=== PATIENT | male | born 1955 | race Caucasian/White ===

== ENCOUNTER 2017-03-11 21:16 | Inpatient (IN) | payer OTHER, MEDICAID ==
[2017-03-11] MEDS: ASPIRIN 81 MG TAB PO (21:49)
[2017-03-11] MEDS: METOPROLOL 5 MG INJ IV ×2 (21:49→22:36)
[2017-03-11] MEDS: NITROGLYCERIN 2% 1 GM OINT PKT TD (21:50)
[2017-03-11] MEDS: NITROGLYCERIN (SL) 0.4 MG TAB SL (21:57)
[2017-03-11 22:01] LABS: ADD MAN DIFF? NO
[2017-03-11 22:04] LABS: WHITE BLOOD COUNT 15.1 10^3/ul (4.8-10.8)
[2017-03-11 22:04] LABS: BASOPHIL # 0.1 10^3/ul (0.0-0.1); BASOPHILS % 0.5 % (0.0-2.0); EOSINOPHILS # 0.1 10^3/ul (0.0-0.5); EOSINOPHILS % 0.5 % (0.0-7.0); HEMATOCRIT 52.3 % (42.0-52.0); HEMOGLOBIN 17.6 g/dl (14.0-18.0); LYMPHOCYTES # 2.7 10^3/ul (0.8-2.9); LYMPHOCYTES % 18.1 % (15.0-51.0); MEAN CORPUSCULAR HEMOGLOBIN 28.1 pg (29.0-33.0); MEAN CORPUSCULAR HGB CONC 33.7 g/dl (32.0-37.0); MEAN CORPUSCULAR VOLUME 83.5 fl (82.0-101.0); MEAN PLATELET VOLUME 10.8 fl (7.4-10.4); MONOCYTE # 1.1 10^3/ul (0.3-0.9); MONOCYTES % 7.1 % (0.0-11.0); NEUTROPHIL # 10.9 10^3/ul (1.6-7.5); NEUTROPHILS % 72.4 % (39.0-77.0); PLATELET COUNT 258 10^3/UL (140-415); RED BLOOD COUNT 6.26 10^6/ul (4.70-6.10); RED CELL DISTRIBUTION WIDTH 13.4 % (11.5-14.5)
[2017-03-11 22:20] LABS: ANION GAP 27 (8-16); BLOOD UREA NITROGEN 26 mg/dl (7-20); CALCIUM 10.5 mg/dl (8.4-10.2); CARBON DIOXIDE 19 mmol/L (21-31); CHLORIDE 106 mmol/L (97-110); CREATININE 1.84 mg/dl (0.61-1.24); GLUCOSE 310 mg/dl (70-220); POTASSIUM 5.1 mmol/L (3.5-5.1); SODIUM 147 mmol/L (135-144)
[2017-03-11] MEDS ORDERED: ACETAMINOPHEN 325 MG TAB PO (22:30)
[2017-03-11] MEDS ORDERED: ONDANSETRON 4 MG INJ IV (22:30)
[2017-03-11 22:33] LABS: TROPONIN-I < 0.012 ng/ml (0.00-0.12)
[2017-03-11] MEDS: SOD CHLORIDE 0.9% 1,000 ML IV ×2 (22:36→22:38)
[2017-03-11] MEDS ORDERED: DILTIAZEM-D5W 125MG/125ML DRIP 125 ML IV ×2 (23:29→23:45)
[2017-03-11] MEDS: ONDANSETRON 4 MG INJ IV (23:38)
[2017-03-12] MEDS ORDERED: NACL 0.9% 3 ML SYG IV
[2017-03-12] MEDS ORDERED: morphine 2 MG INJ IV
[2017-03-12] MEDS ORDERED: MAGNESIUM HYDROXIDE 30ML CUP PO
[2017-03-12] MEDS ORDERED: DOCUSATE SODIUM 100 MG CAP PO
[2017-03-12] MEDS ORDERED: ACETAMINOPHEN 325 MG TAB PO
[2017-03-12] MEDS ORDERED: ALBUTEROL/IPRATROPIUM (NEB) 3 ML AMP HHN
[2017-03-12] MEDS ORDERED: NITROGLYCERIN (SL) 0.4 MG TAB SL
[2017-03-12] MEDS ORDERED: NA PHOSPHATE/BIPHOS 133 ML ENEMA PR
[2017-03-12] MEDS ORDERED: DILTIAZEM-D5W 125MG/125ML DRIP 125 ML IV
[2017-03-12] MEDS ORDERED: hydrALAzine 20 MG INJ IV
[2017-03-12] MEDS ORDERED: LORAZEPAM 2 MG INJ IV
[2017-03-12] MEDS ORDERED: ONDANSETRON 4 MG INJ IV
[2017-03-12] MEDS ORDERED: HYDROCODONE/APAP (5/325) TAB PO
[2017-03-12] MEDS: DILTIAZEM 125 MG in DEXTROSE 5% 100 ML IV (00:03)
[2017-03-12] MEDS: INSULIN LISPRO 100 UNIT/ML VIAL SC (00:06)
[2017-03-12] MEDS: METOPROLOL 25 MG TAB PO (00:19)
[2017-03-12 03:06] LABS: CREATINE KINASE 68 IU/L (23-200)
[2017-03-12 03:07] LABS: ALANINE AMINOTRANSFERASE 49 IU/L (13-69); ALBUMIN 3.6 g/dl (3.3-4.9); ALKALINE PHOSPHATASE 59 IU/L (42-121); ASPARTATE AMINO TRANSFERASE 40 IU/L (15-46); BILIRUBIN,INDIRECT 0.6 mg/dl (0-1.1); BILIRUBIN,TOTAL 0.6 mg/dl (0.2-1.3); LIPASE 53 U/L (23-300); TOTAL PROTEIN 7.4 g/dl (6.1-8.1)
[2017-03-12 03:18] LABS: CK INDEX 11.3
[2017-03-12 03:24] LABS: CK-MB 7.71 ng/ml (0.0-2.4); TROPONIN-I < 0.012 ng/ml (0.00-0.12)
[2017-03-12 03:25] LABS: FREE T4 (FREE THYROXINE) 1.64 ng/dl (0.64-1.79)
[2017-03-12 05:57] LABS: ADD MAN DIFF? NO
[2017-03-12] MEDS ORDERED: GLUCOSE GEL 15 GRAM TUBE BUCCAL (06:00)
[2017-03-12] MEDS ORDERED: GLUCOSE GEL 15 GRAM TUBE PO ×2 (06:00)
[2017-03-12] MEDS ORDERED: GLUCAGON 1 MG INJ IM (06:00)
[2017-03-12] MEDS ORDERED: DEXTROSE 50% 50 ML SYRINGE IV ×2 (06:00)
[2017-03-12 06:13] LABS: BASOPHILS % 0.3 % (0.0-2.0); EOSINOPHILS % 0.1 % (0.0-7.0); HEMATOCRIT 47.5 % (42.0-52.0); HEMOGLOBIN 16.1 g/dl (14.0-18.0); LYMPHOCYTES # 1.3 10^3/ul (0.8-2.9); MEAN CORPUSCULAR HEMOGLOBIN 28.6 pg (29.0-33.0); MEAN CORPUSCULAR HGB CONC 33.9 g/dl (32.0-37.0); MEAN CORPUSCULAR VOLUME 84.4 fl (82.0-101.0); MEAN PLATELET VOLUME 10.9 fl (7.4-10.4); MONOCYTE # 1.3 10^3/ul (0.3-0.9); MONOCYTES % 9.4 % (0.0-11.0); NEUTROPHIL # 10.6 10^3/ul (1.6-7.5); NEUTROPHILS % 79.2 % (39.0-77.0); PLATELET COUNT 191 10^3/UL (140-415); RED BLOOD COUNT 5.63 10^6/ul (4.70-6.10); RED CELL DISTRIBUTION WIDTH 14.1 % (11.5-14.5)
[2017-03-12 06:13] LABS: WHITE BLOOD COUNT 13.4 10^3/ul (4.8-10.8)
[2017-03-12 06:18] LABS: CHOLESTEROL 144 mg/dl (100-200)
[2017-03-12 06:18] LABS: CHOL/HDL RATIO 5.1 RATIO; CREATINE KINASE 51 IU/L (23-200); HDL CHOLESTEROL 28 mg/dl (30-78); LDL CHOLESTEROL,CALCULATED 53 mg/dl; TRIGLYCERIDES 317 mg/dl (0-149)
[2017-03-12 06:20] LABS: ANION GAP 16 (8-16); BLOOD UREA NITROGEN 34 mg/dl (7-20); CALCIUM 9.3 mg/dl (8.4-10.2); CARBON DIOXIDE 24 mmol/L (21-31); CHLORIDE 111 mmol/L (97-110); CREATININE 1.87 mg/dl (0.61-1.24); GLUCOSE 223 mg/dl (70-220); MAGNESIUM 2.1 mg/dl (1.7-2.5); PHOSPHORUS 5.1 mg/dl (2.5-4.9); POTASSIUM 5.2 mmol/L (3.5-5.1); SODIUM 146 mmol/L (135-144)
[2017-03-12 06:30] LABS: CK INDEX 17.6
[2017-03-12 06:31] LABS: CK-MB 8.96 ng/ml (0.0-2.4); TROPONIN-I < 0.012 ng/ml (0.00-0.12)
[2017-03-12 07:50] LABS: HEMOGLOBIN A1C 8.5 % (0-5.9)
[2017-03-12] MEDS: ASPIRIN (EC) 325 MG TAB PO ×2 (08:41→19:56)
[2017-03-12] MEDS: AMLODIPINE 5 MG TAB PO (08:42)
[2017-03-12] MEDS: FENOFIBRATE 145 MG TAB PO (08:42)
[2017-03-12] MEDS: FAMOTIDINE 20 MG INJ IV ×2 (08:42→21:07)
[2017-03-12] MEDS: LORATADINE 10 MG TAB PO (08:42)
[2017-03-12] MEDS ORDERED: NON-FORMULARY/PATIENT OWN MED (Canagliflozin (Invokana) 300 MG) PO (09:00)
[2017-03-12] MEDS ORDERED: FAMOTIDINE 20 MG TAB PO (09:00)
[2017-03-12 09:06] LABS: CREATINE KINASE 58 IU/L (23-200)
[2017-03-12 09:17] LABS: CK INDEX 14.6
[2017-03-12] MEDS: INSULIN ASPART [NOVOLOG] 3 ML PEN SC ×4 (09:21→22:59)
[2017-03-12 09:44] LABS: CK-MB 8.46 ng/ml (0.0-2.4); TROPONIN-I < 0.012 ng/ml (0.00-0.12)
[2017-03-12 09:47] LABS: ADD UMIC NO; UR ASCORBIC ACID NEGATIVE (NEGATIVE); UR BILIRUBIN (Dip) NEGATIVE (NEGATIVE); UR BLOOD (Dip) NEGATIVE (NEGATIVE); UR CLARITY CLEAR (CLEAR); UR COLOR YELLOW (YELLOW); UR GLUCOSE (Dip) 3+ mg/dL (NEGATIVE); UR KETONES (Dip) TRACE mg/dL (NEGATIVE); UR LEUKOCYTE ESTERASE (Dip) NEGATIVE Leu/ul (NEGATIVE); UR NITRITE (Dip) NEGATIVE (NEGATIVE); UR SPECIFIC GRAVITY (Dip) 1.016 (1.003-1.030); UR TOTAL PROTEIN (Dip) NEGATIVE (NEGATIVE); UR UROBILINOGEN (Dip) NEGATIVE (NEGATIVE)
[2017-03-12 10:10] LABS: CREATININE,URINE RANDOM 72.24 mg/dl (20-370)
[2017-03-12 10:19] LABS: SODIUM,URINE RANDOM < 13 mmol/L (30-90)
[2017-03-12] MEDS ORDERED: LABETALOL HCL 20MG INJ IV (12:00)
[2017-03-12 14:42] LABS: CREATINE KINASE 47 IU/L (23-200)
[2017-03-12 14:53] LABS: CK INDEX 16.4
[2017-03-12 14:56] LABS: TROPONIN-I < 0.012 ng/ml (0.00-0.12)
[2017-03-12 14:57] LABS: CK-MB 7.71 ng/ml (0.0-2.4)
[2017-03-12 15:00] LABS: ANION GAP 18 (8-16); BLOOD UREA NITROGEN 34 mg/dl (7-20); CARBON DIOXIDE 23 mmol/L (21-31); CHLORIDE 110 mmol/L (97-110); CREATININE 1.83 mg/dl (0.61-1.24); GLUCOSE 218 mg/dl (70-220); POTASSIUM 5.2 mmol/L (3.5-5.1); SODIUM 146 mmol/L (135-144)
[2017-03-12] MEDS: [UNRECOGNIZED DRUG - OTHER] XX (19:30)
[2017-03-12] MEDS: HEPARIN 5,000 UNIT/0.5 ML VIAL SC ×2 (19:56→21:24)
[2017-03-12] MEDS: SOD CHLORIDE 0.45% 1,000 ML IV ×2 (19:56→23:30)
[2017-03-12] MEDS: ATORVASTATIN 40 MG TAB PO (21:07)
[2017-03-13] MEDS: INSULIN ASPART [NOVOLOG] 3 ML PEN SC ×6 (00:03→21:00)
[2017-03-13] MEDS ORDERED: ACCU-CHEK XX (02:00)
[2017-03-13] MEDS: [UNRECOGNIZED DRUG - OTHER] XX ×2 (03:05→19:30)
[2017-03-13 06:11] LABS: ADD MAN DIFF? NO
[2017-03-13 06:25] LABS: WHITE BLOOD COUNT 6.3 10^3/ul (4.8-10.8)
[2017-03-13 06:25] LABS: BASOPHILS % 0.5 % (0.0-2.0); EOSINOPHILS # 0.3 10^3/ul (0.0-0.5); EOSINOPHILS % 4.2 % (0.0-7.0); HEMATOCRIT 40.8 % (42.0-52.0); HEMOGLOBIN 13.9 g/dl (14.0-18.0); LYMPHOCYTES # 1.5 10^3/ul (0.8-2.9); LYMPHOCYTES % 23.5 % (15.0-51.0); MEAN CORPUSCULAR HEMOGLOBIN 28.8 pg (29.0-33.0); MEAN CORPUSCULAR HGB CONC 34.1 g/dl (32.0-37.0); MEAN CORPUSCULAR VOLUME 84.6 fl (82.0-101.0); MONOCYTE # 0.7 10^3/ul (0.3-0.9); MONOCYTES % 10.7 % (0.0-11.0); NEUTROPHIL # 3.8 10^3/ul (1.6-7.5); NEUTROPHILS % 60.6 % (39.0-77.0); PLATELET COUNT 150 10^3/UL (140-415); RED BLOOD COUNT 4.82 10^6/ul (4.70-6.10)
[2017-03-13 06:39] LABS: PHOSPHORUS 3.1 mg/dl (2.5-4.9)
[2017-03-13] MEDS: DILTIAZEM-D5W 125MG/125ML DRIP 125 ML IV (06:45)
[2017-03-13 06:57] LABS: ANION GAP 14 (8-16); BLOOD UREA NITROGEN 31 mg/dl (7-20); CARBON DIOXIDE 23 mmol/L (21-31); CHLORIDE 107 mmol/L (97-110); CREATININE 1.48 mg/dl (0.61-1.24); GLUCOSE 179 mg/dl (70-220); POTASSIUM 3.8 mmol/L (3.5-5.1); SODIUM 140 mmol/L (135-144)
[2017-03-13] MEDS: LORATADINE 10 MG TAB PO (09:35)
[2017-03-13] MEDS: FAMOTIDINE 20 MG INJ IV ×2 (09:35→21:12)
[2017-03-13] MEDS: AMLODIPINE 5 MG TAB PO (09:37)
[2017-03-13] MEDS: FENOFIBRATE 145 MG TAB PO (09:38)
[2017-03-13] MEDS: ASPIRIN (EC) 325 MG TAB PO (09:38)
[2017-03-13] MEDS: HEPARIN 5,000 UNIT/0.5 ML VIAL SC ×2 (09:41→21:20)
[2017-03-13] MEDS: SOD CHLORIDE 0.45% 1,000 ML IV (13:54)
[2017-03-13] MEDS: ATORVASTATIN 40 MG TAB PO (21:13)
[2017-03-14] MEDS: SOD CHLORIDE 0.45% 1,000 ML IV (02:40)
[2017-03-14] MEDS: [UNRECOGNIZED DRUG - OTHER] XX ×2 (03:30→11:30)
[2017-03-14 07:30] LABS: ADD MAN DIFF? NO
[2017-03-14 07:34] LABS: BASOPHILS % 0.2 % (0.0-2.0); EOSINOPHILS # 0.2 10^3/ul (0.0-0.5); EOSINOPHILS % 4.6 % (0.0-7.0); HEMATOCRIT 36.4 % (42.0-52.0); HEMOGLOBIN 12.6 g/dl (14.0-18.0); LYMPHOCYTES # 1.2 10^3/ul (0.8-2.9); LYMPHOCYTES % 29.2 % (15.0-51.0); MEAN CORPUSCULAR HEMOGLOBIN 28.6 pg (29.0-33.0); MEAN CORPUSCULAR HGB CONC 34.6 g/dl (32.0-37.0); MEAN CORPUSCULAR VOLUME 82.7 fl (82.0-101.0); MEAN PLATELET VOLUME 10.9 fl (7.4-10.4); MONOCYTE # 0.4 10^3/ul (0.3-0.9); MONOCYTES % 10.2 % (0.0-11.0); NEUTROPHIL # 2.3 10^3/ul (1.6-7.5); NEUTROPHILS % 55.3 % (39.0-77.0); PLATELET COUNT 122 10^3/UL (140-415); RED CELL DISTRIBUTION WIDTH 13.4 % (11.5-14.5)
[2017-03-14 07:34] LABS: WHITE BLOOD COUNT 4.1 10^3/ul (4.8-10.8)
[2017-03-14 07:59] LABS: ANION GAP 12 (8-16); BLOOD UREA NITROGEN 21 mg/dl (7-20); CALCIUM 8.1 mg/dl (8.4-10.2); CARBON DIOXIDE 24 mmol/L (21-31); CHLORIDE 108 mmol/L (97-110); CREATININE 1.13 mg/dl (0.61-1.24); GLUCOSE 159 mg/dl (70-220); POTASSIUM 4.3 mmol/L (3.5-5.1); SODIUM 140 mmol/L (135-144)
[2017-03-14] MEDS: INSULIN ASPART [NOVOLOG] 3 ML PEN SC ×2 (09:05→12:46)
[2017-03-14] MEDS: HEPARIN 5,000 UNIT/0.5 ML VIAL SC (09:05)
[2017-03-14] MEDS: CANAGLIFLOZIN 300 MG PO (09:07)
[2017-03-14] MEDS: AMLODIPINE 5 MG TAB PO (09:12)
[2017-03-14] MEDS: LORATADINE 10 MG TAB PO (09:12)
[2017-03-14] MEDS: FENOFIBRATE 145 MG TAB PO (09:13)
[2017-03-14] MEDS: FAMOTIDINE 20 MG INJ IV (09:14)
[2017-03-14] MEDS: ASPIRIN (EC) 325 MG TAB PO (09:19)
[2017-03-14] MEDS: APIXABAN 5 MG TABLET PO (12:48)
[2017-03-14 14:52] LABS: CREATININE, RANDOM URINE 81 mg/dL (20-370); MICROALBUMIN 2.9 mg/dL; MICROALBUMIN/CREATININE RATIO 36 (<30)
[2017-03-15] MEDS ORDERED: INFLUENZA VIRUS VACCINE 0.5 ML (DISPENSING) IM* (09:00)
== END 2017-03-14 16:31 | disposition home or self-care (01) | DRG 309 ==
LOC: TEL 22:26 → E/R 21:16
DX: I48.91 Unspecified atrial fibrillation (principal); N17.9 Acute kidney failure, unspecified; K56.609 Unspecified intestinal obstruction, unspecified as to partial versus complete obstruction; E87.0 Hyperosmolality and hypernatremia; E87.2 Acidosis; E11.22 Type 2 diabetes mellitus with diabetic chronic kidney disease; I12.9 Hypertensive chronic kidney disease with stage 1 through stage 4 chronic kidney disease, or unspecified chronic kidney disease; N18.9 Chronic kidney disease, unspecified; I25.10 Atherosclerotic heart disease of native coronary artery without angina pectoris; E87.5 Hyperkalemia; I10 Essential (primary) hypertension
CPT/HCPCS: 36415; 71045; 74176; 76775; 80048; 80061; 80076; 81003; 82043; 82550; 82553; 82962; 83036; 83690; 83735; 84100; 84155; 84300; 84439; 84443; 84484; 85025; 87086; 93005; 93306; 96372; 96374; 96375; 97162; 99291-25